=== PATIENT | female | born 1985 | race Caucasian/White ===

== ENCOUNTER 2017-08-15 10:38 | Emergency (ER) | payer OTHER ==
[~2017-08-15] VITALS: Ht 160 cm; Wt 120.9 kg
[~2017-08-15 10:38] MED LIST: AMIT10TA6 PO; HYDR-3481 PO; METH750T3 PO; OMEP-113 PO; ONDA4TAB9 PO; RES15 PO; ROPI2TAB2 PO; TOPI25TA34 PO
[2017-08-15 10:44] VITALS: BP 137/86; PULSE 95; RESP 16; O2SAT 99
--- NOTE | 2017-08-15 11:20 | ED.REPORT ---
HPI-Abd Pain F Under 40 Date of Service Aug 15, 2017 ED Provider: Dr. Calvin Krueger MD A 32 year old famel with a history of recurrent UTIs, nephrolithiasis, restless leg syndrome and cholelithiasis presents to the ED with right-sided abdominal pain that began this morning. Associated symptoms include nausea, diarrhea and mild dysuria. The patient reports similar symptoms during her previous episodes of cholelithiasis and she was reportedly recently diagnosed with 3 gallstones and presents today because she is experiencing similar pain. She denies recent fever , chills or vomiting. Last meal was at 8:45 this morning. Nursing Notes Stated Complaint: ABD PAIN Chief Complaint: Female Abdominal Pain Nursing Notes Reviewed: Yes Allergies: Coded Allergies: aspirin (Verified Allergy, Severe, 08/15/17) tetracycline (Verified Allergy, Severe, DOXYCYCLINE, 08/15/17) latex (Verified Allergy, Intermediate, direct exposure causes itchy rash and little blisters, 08/15/17) Uncoded Allergies: STRAWBERRIES (Allergy, Unknown, 11/22/14) Scheduled Amitriptyline (Amitriptyline) 10 Mg Tablet 3 TAB PO HS Omeprazole Magnesium (Omeprazole) 20 Mg Capsule.dr 20 MG PO DAILY Ropinirole (Requip) 2 Mg Tablet 2 MG PO HS Topiramate (Topamax) 25 Mg Tablet 25 MG PO HS Scheduled PRN Hydrocodone/Acetaminophen (Vicodin Es 7.5-300 mg Tablet) 1 Each Tablet 1 EACH PO Q4-6H PRN PRN For Pain Ibuprofen (Ibuprofen) 800 Mg Tablet 800 MG PO TID PRN PRN For Pain Methocarbamol (Methocarbamol) 750 Mg Tablet 2 TAB PO Q12 PRN PRN For Spasm Ondansetron ODT (Zofran ODT) 4 Mg Tab.rapdis 4 MG PO PRN PRN PRN For Nausea Ondansetron ODT (Zofran ODT) 4 Mg Tablet 4 MG PO Q4H PRN PRN For Nausea Temazepam (Temazepam) 15 Mg Capsule 15 MG PO HS PRN PRN For Insomnia Tramadol (Tramadol) 50 Mg Tablet 50 MG PO Q4H PRN PRN For Pain General Time Seen by MD: 11:19 Chief Complaint Abdominal pain Hx Obtained From: Patient Arrived By: Walk-in Sudden in Onset?: No Onset Occurred: 5 - 8 hours ago Symptom Duration: Since onset Progression since Onset: Unchanged Location: : RLQ: RUQ Quality: Painful Radiation: : Does not radiate Severity: Current: Moderate Severity: Maximum: Moderate Associated with: Reports: Diarrhea, Nausea, Denies: Chills, Fever, Vomiting Pertinent Negative: Pt denies other symptoms Recent Healthcare: No recent hospitalization, Recent doctor visit Similar Sx Previous: Yes Past Medical History Past Medical History Migraines Recurrent UTI Nephrolithiasis Restless leg syndrome Cholelithiasis Past Surgical History None reported. Family History Reviewed, not relevant Smoking History Never Smoker Social History Alcohol Use: "Social" Drug Use: Denies drug use Other Social History: Good social support, Local resident Ambulatory Status Independent Review of Systems Constitutional: Denies: Chills, Fever GI: Reports: Abdominal pain, Nausea, Denies: Vomiting Female: Reports: Dysuria (mild) Complete sys rev & neg: except as marked. Physical Exam Initial Vital Signs Vital Signs (First) Date Time Temp Pulse Resp B/P Pulse Ox O2 Delivery O2 Flow Rate FiO2 08/15/17 10:44 37.2 95 16 137/86 99 Room Air Initial VS: Reviewed Head / Eyes: Atraumatic, Normocephalic, PERRL Neck: Supple, Non-tender, Full range of motion Extremities: Vascular intact, Neuro intact, No swelling, No tenderness Skin: Warm, Dry, No cyanosis Neurologic: Alert, Oriented, Nonfocal Psychiatric: Mood/affect normal, Behavior normal, Normal thought content General/Constitutional: Awake, Alert, No acute distress Respiratory / Chest: Atraumatic, Breath sounds NL, Breath sounds = bilat, No respiratory distress Cardiovascular: Heart rate NL, Regular rhythm, Heart sounds NL Abdomen: Atraumatic, Soft, No guarding, No rebound, No distention Tenderness/Guarding/Rebound: Positive: Tender RUQ... Back: Atraumatic, Inspection NL, Non-tender Interpretation & Diagnostics Lab Results Interpretation Result Diagram: 08/15/17 1140 08/15/17 1140 Test 08/15/17 11:14 08/15/17 11:40 Urine Color Straw (YELLOW) Urine Appearance Hazy (CLEAR,HAZY) Urine pH 7.5 (5.0-8.0) Urine Specific [place] 1.015 (1.003-1.035) Urine Protein Negativemg/dL (NEG,TRACE) Urine Glucose (UA) Negativemg/dL (NEGATIVE) Urine Ketones Negativemg/dL (NEGATIVE) Urine Occult Blood Small (NEGATIVE) Urine Nitrite Negative (NEGATIVE) Urine Bilirubin Negative (NEGATIVE) Urine Urobilinogen Normalmg/dL (NORMAL) Urine Leukocyte Esterase Negative (NEGATIVE) Urine RBC 0-2/hpf (0-2) Urine WBC 0-5/hpf (0-5) Urine Epithelial Cells Occasional/hpf (NONE-MOD) Urine Crystals Amorphous phosphates Urine Bacteria Few/hpf (NONE-FEW) Urine Hyaline Casts None/lpf (NONE) Urine Granular Casts None seen (NONE SEEN) Urine Waxy Casts None seen (NONE SEEN) Urine Red Blood Cell Casts None seen (NONE SEEN) Urine White Blood Cell Casts None seen (NONE SEEN) Urine Mucus None seen (None Seen) Urine Trichomonas None seen (NONE SEEN) Urine Yeast None (NONE SEEN) Urinalysis Comment None Urine Culture Reflexed Not indicated Hold Urine Received (Received) White Blood Count 9.7th/mm3 (3.8-10.1) Red Blood Count 4.79mil/mm3 (3.90-5.20) Hemoglobin 14.1g/dL (12.0-15.6) Hematocrit 43.1% (35.0-46.0) Mean Corpuscular Volume 90.0fL (81-100) Mean Corpuscular Hemoglobin 29.4pg (27.0-35.0) Mean Corpuscular Hemoglobin Concent 32.7% (32.0-37.0) Red Cell Distribution Width 12.8% (12.3-15.4) Platelet Count 281bil/L (150-400) Neutrophils (%) (Auto) 74.8% (40-74) Lymphocytes (%) (Auto) 19.8% (14-46) Monocytes (%) (Auto) 4.4% (4-12) Eosinophils (%) (Auto) 0.6% (0-5) Basophils (%) (Auto) 0.2% (0-3) Sodium Level 141mEq/L (134-144) Potassium Level 3.7mEq/L (3.5-5.2) Chloride Level 105mEq/L (97-108) Carbon Dioxide Level 22mmol/L (18-29) Blood Urea Nitrogen 8mg/dL (6-20) Creatinine 0.56mg/dL (0.57-1.00) Estimat Glomerular Filtration Rate 182mL/min (>59) Glucose Level 98mg/dL (60-99) Calcium Level 9.0mg/dL (8.5-10.1) Magnesium Level 2.2mg/dL (1.6-2.6) Total Bilirubin 0.5mg/dL (0.0-1.2) Aspartate Amino Transf (AST/SGOT) 20U/L (0-50) Alanine Aminotransferase (ALT/SGPT) 23U/L (0-32) Alkaline Phosphatase 88U/L (25-150) Total Protein 7.8g/dL (6.4-8.4) Albumin 4.3g/dL (3.4-5.0) Lipase 56U/L (13-60) US Focused Biliary IMPRESSION: 1. Increased hepatic echogenicity noted likely related to fatty infiltration of the liver but other sources of hepatocellular disease cannot be excluded. Recommend clinical correlation. 2. Contracted gallbladder which is suboptimally visualized. Within these limits, 4 mm gallbladder polyp is present. If indicated repeat gallbladder ultrasound dated be performed after the patient has been fasting between 8 and 10 hours. Dictated by: Pepe Cummins RRGabbie Interpreted: Jet Sandra MD on 08/15/2017 at 13:35 Exam Interpreted by: Radiologist Re-Eval/Medical Decision Med Decision/Clinical Course Med Decision/Clinical Course: Nonspecific abdominal pain no evidence of cholecystitis. Labs reassuring. Discussed with patient the need for close follow-up within 24-48 hours for repeat evaluation and potential repeat imaging or sooner if there is a progression in symptoms.. Re-Evaluation/Progress : Time of Eval: 13:34 Re-Evaluation/Progress Note: Patient is rechecked. She is informed of her current results. All questions about the intended treatment plan are addressed. The patient is agreeable to her disposition at this time. Counseled Regarding: Diagnosis, Lab results, Need for follow-up, When/why to return to ED Discharge & Departure Primary Impression: Right upper quadrant abdominal pain Disposition: Home Discharge Condition All VS Reviewed: Yes Condition: Improved Patient Instructions: Acute Abdominal Pain (ED) Additional Instructions: Thank you for trusting us with your care this morning. Your emergency department evaluation today including examination, lab work and ultrasound are reassuring that there is no emergent cause for concern at this time and there is evidence of infection in your gallbladder at this time. A clear cause of your symptoms was not identified at this time. Eat a bland diet to help relieve your symptoms. Avoid greasy food. (banana, rice , toast, applesauce) Take ibuprofen or Tylenol as directed for pain. Schedule a follow up appointment with your primary care physician in the next 1- 2 days for a recheck. Please return to the emergency department for any new or worsening conditions including any headache, nausea, vomiting, fever, chills, weakness, shortness of breath, persistent abdominal pain, or any other concerning symptoms. Referrals: Zander Deluca DO (PCP) Scribe Attestation Portions of this note were transcribed by Brenda Menon. I, Dr. Luis Krueger, personally performed the history, physical exam and medical decision-making; I reviewed and confirmed the accuracy of the information in the transcribed note. Signed by: Brenda Menon, 08/15/17. copies to: Zander Deluca Timothy S DO Aug 15, 2017 11:20 BRENDA MENON Aug 15, 2017 11:43
[2017-08-15] MEDS ORDERED: 0.9% Sodium Chloride 1,000 ML IV ONE (11:23)
[2017-08-15] MEDS ORDERED: Ondansetron 2 mg/mL 2 mL Inj IVPUSH PRN (11:25)
[2017-08-15 11:58] LABS: APPEARANCE,URINE HAZY (CLEAR,HAZY); COLOR,URINE STRAW (YELLOW); OCCULT BLOOD,URINE SMALL (NEGATIVE); PH,URINE 7.5 (5.0-8.0); UROBILINOGEN,URINE NORMAL (NORMAL)
[2017-08-15 12:03] LABS: BASOPHILS % (AUTO) 0.2 % (0-3); EOSINOPHILS % (AUTO) 0.6 % (0-5); MONOCYTES % (AUTO) 4.4 % (4-12); Mean Corpuscular Hemoglobin 29.4 pg (27.0-35.0); NEUTROPHILS % (AUTO) 74.8 % (40-74); Platelet Count 281 bil/L (150-400)
[2017-08-15 12:29] LABS: Magnesium 2.2 mg/dL (1.6-2.6)
--- NOTE | 2017-08-15 13:48 | DRSVH ---
PROCEDURE: US ABDOMEN INDICATIONS: ruq pain TECHNIQUE: Real-time scanning was performed of the abdominal and retroperitoneal organs, with image documentatio n. COMPARISON: [facility], US, ABDOMEN SONOGRAM, 01/16/2015, 7:46. FINDINGS: Liver length: 16.93 cm CHD: 2.50 mm CBD: 2.60 mm Spleen length: 11.03 cm Right kidney length: 10.85 cm Left kidney length: 12.38 cm Aorta(Proximal): 1.87 cm Aorta(Mid): 1.73 cm Aorta(Distal): 1.64 cm Liver: Liver is diffusely increased in echogenicity. No focal hepatic abnormalities identified. No rmal hepatic size. Gallbladder: Gallbladder is contracted and suboptimally visualized. 4 mm gallbladder polyp is presen t. Biliary ducts: Intrahepatic bile ducts are non-dilated. Extrahepatic bile duct caliber is normal. Normal is 6-7 mm or less in diameter, or 10 mm or less post-cholecystectomy. Pancreas: Visualized portions of the pancreas are sonographically normal. Spleen: Spleen is normal in size and homogeneous in echotexture. Kidneys: Kidneys are normal in size and echotexture. No hydronephrosis or nephrolithiasis. No erika d masses. Aorta: Visualized aorta is normal in caliber at less than 3 cm. Iliacs: Proximal common iliac arteries are normal in caliber at less than 2.5 cm. IVC: Intrahepatic inferior vena cava is patent. Miscellaneous: No free abdominal fluid. IMPRESSION: 1. Increased hepatic echogenicity noted likely related to fatty infiltration of the liver but other s ources of hepatocellular disease cannot be excluded. Recommend clinical correlation. 2. Contracted gallbladder which is suboptimally visualized. Within these limits, 4 mm gallbladder po lyp is present. If indicated repeat gallbladder ultrasound dated be performed after the patient has been fasting between 8 and 10 hours. Dictated by: Pepe RIZZO Interpreted: Jet Sandra MD on 08/15/2017 at 13:35 Approved by: Jet Sandra M.D. on 08/15/2017 at 13:46
[2017-08-15] MEDS ORDERED: TRAM50TA2 PO (13:55)
[2017-08-15] MEDS ORDERED: IBUP800T28 PO (13:55)
[2017-08-15] MEDS ORDERED: ONDA4TAB9 PO (13:55)
[2017-08-15 15:05] VITALS: BP 119/82; PULSE 69; RESP 20; O2SAT 98
[2017-08-15 15:19] VITALS: BP 119/82; PULSE 69; RESP 20; O2SAT 98
== END 2017-08-15 15:20 | disposition home or self-care (01) ==
LOC: SED 10:38
DX: R10.11 Right upper quadrant pain (principal); R19.7 Diarrhea, unspecified; R30.0 Dysuria; R11.0 Nausea; G43.909 Migraine, unspecified, not intractable, without status migrainosus; Z87.440 Personal history of urinary (tract) infections; Z88.1 Allergy status to other antibiotic agents; Z88.6 Allergy status to analgesic agent; Z91.040 Latex allergy status
CPT/HCPCS: 36415; 76700; 80053; 81000; 81025; 83690; 83735; 85025; 96361; 96374; 96375; 99285; J1885; J2405; J7030